=== PATIENT | male | born 1940 | race Caucasian/White ===

== ENCOUNTER 2021-05-26 15:01 | Emergency (ER) | payer MEDICARE, SELFPAY ==
[~2021-05-26] VITALS: Ht 172.7 cm; Wt 83.9 kg
[2021-05-26 15:01] VITALS: BP_SYST 132
--- NOTE | 2021-05-26 15:01 | NUR ---
BROUGHT IN BY [facility], PLACED IN BED #2 AND TRIAGED. REPORT GIVEN TO EARL
--- NOTE | 2021-05-26 15:05 | NUR ---
DOROTHEA Contreras at bedside examining patient.
--- NOTE | 2021-05-26 15:10 | NUR ---
Pt. bib BLS with c/o feeling like he was going to pass out 3 or 4 times today, stated took his blood pressure and it was high which is atypical for him, currently feels well no weakness.
--- NOTE | 2021-05-26 15:15 | NUR ---
lab at bedside for blood draw
[2021-05-26 15:27] LABS: BASOPHILS % (AUTO) 0.4 % (0.0-2.0); EOSINOPHILS # (AUTO) 0.1 K/uL (0.0-0.4); EOSINOPHILS % (AUTO) 0.9 % (0.0-4.0); HEMATOCRIT 40.3 % (36-54); HEMOGLOBIN 13.7 g/dL (14.0-18.0); LYMPHOCYTES % (AUTO) 24.2 % (20.5-51.5); MEAN CORPUSCULAR HEMOGLOBIN 33 pg (27-31); MEAN CORPUSCULAR HGB CONC 34 % (32-36); MEAN CORPUSCULAR VOLUME 97 fL (79.0-98.0); MONOCYTES # (AUTO) 0.7 K/uL (0.0-1.0); MONOCYTES % (AUTO) 8.6 % (1.7-9.3); NEUTROPHILS # (AUTO) 5.3 K/uL (1.8-7.7); NEUTROPHILS % (AUTO) 65.9 % (40.0-70.0); PLATELET COUNT (AUTO) 182 K/uL (130-430); RED BLOOD CELL COUNT(AUTO) 4.15 MIL/uL (4.2-6.2); RED CELL DISTRIBUTION WIDTH 13.2 % (9.0-15.0); WHITE BLOOD COUNT (AUTO) 8.1 K/uL (4.8-10.8)
--- NOTE | 2021-05-26 15:30 | NUR ---
chest xray at bedside
[2021-05-26 15:41] LABS: ANION GAP 7 (5-15); CALCIUM 8.9 mg/dL (8.4-11.0); CHLORIDE 108 mmol/L (98-107); CREATININE 1.53 mg/dL (0.55-1.30); GLUCOSE 90 mg/dL (70-99); POTASSIUM 4.1 mmol/L (3.5-5.1); SODIUM SERUM 144 mmol/L (136-145); UREA NITROGEN, BLOOD 22 mg/dL (8-21)
[2021-05-26 15:47] LABS: INR 1.1 (0.80-1.20)
--- NOTE | 2021-05-26 15:51 | NUR ---
pt. mentioned yesterday he was having issues urinating notified Dr. Argueta, will send urine to lab [facility] at this time.
--- NOTE | 2021-05-26 15:53 | NUR ---
DR. VELAZQUEZ, [facility], CALLED BACK TO SPEAK TO DR. PERCY CHANIN PT STATUS
--- NOTE | 2021-05-26 15:53 | NUR ---
covid swab sent
[2021-05-26 15:56] LABS: ALANINE AMINOTRANSFERASE 70 U/L (12-78); ALBUMIN 3.4 g/dL (3.4-4.8); ASPARTATE AMINOTRANSFERASE 37 U/L (10-37); BILIRUBIN,DIRECT 0.1 mg/dL (0.0-0.3); FREE T4 (FREE THYROXINE) 0.8 ng/dl (0.8-1.5); LIPASE 76 U/L (73-393); THYROID STIMULATING HORMONE 1.87 uIu/mL (0.36-3.74); TOTAL BILIRUBIN 0.3 mg/dL (0.0-1.0)
--- NOTE | 2021-05-26 15:56 | NUR ---
DR. VELAZQUEZ AND DR. GREER AGREED TO TRANSFER PT TO A [facility]
[2021-05-26] MEDS: MAGNESIUM SULFATE 1 GM/2 ML VIAL IV ONE (16:24)
--- NOTE | 2021-05-26 20:32 | NUR ---
report to Mora at [place]
[2021-05-26 21:28] VITALS: BP_SYST 130
--- NOTE | 2021-05-26 21:30 | NUR ---
Pt. being transfered to [facility] per insurance with [employer] with [employer]
== END 2021-05-26 21:28 | disposition short-term general hospital (02) ==
LOC: SED 15:01
DX: R55 Syncope and collapse (principal); I48.92 Unspecified atrial flutter; Z88.1 Allergy status to other antibiotic agents; Z88.8 Allergy status to other drugs, medicaments and biological substances; Z20.822 Contact with and (suspected) exposure to COVID-19
CPT/HCPCS: 36415; 71045; 80048; 80076; 83690; 83880; 84439; 84443; 84484; 85025; 85610; 85730; 87426; 93005; 96374; 99285; J3475